=== PATIENT | male | born 1960 | race Caucasian/White ===

== ENCOUNTER 2018-03-20 08:04 | Day surgery (SDC) | payer BC ==
[2018-03-15 13:28] VITALS: BMI 25.0
[~2018-03-20 08:04] MED LIST: LACTATED RINGERS 1,000 ML IV SCH
[2018-03-20 08:28] VITALS: TEMP 98
[2018-03-20] MEDS ORDERED: LACTATED RINGERS 1,000 ML IV ONE (08:29)
[2018-03-20] MEDS ORDERED: LIDOCAINE 1% 20 ML VIAL (10MG/ML) FOR IV START INTRADERMA ONE (08:29)
--- NOTE | 2018-03-20 10:13 | P.PCN ---
Date of Procedure: 03/20/18 Procedure(s) Performed: Procedure: Total colonoscopy. Preoperative diagnosis: Screening for neoplasia, patient has history of cancerous polyps. Postoperative diagnosis: Exam within normal limits. Preparation: HalfLytely prep. Sedation: Was provided by anesthesia. Brief clinical history: The patient is a 58-year-old male who was discovered to have cancerous polyp in 2009 for which he had segmental resection. His colonoscopy was repeated in 2012 and he returns today for screening because of that history. He has no abdominal complaints, bleeding or anemia. Procedure: With the patient on his left lateral decubitus position and after informed consent and adequate sedation, the perianal area was inspected and it did not show any fissures or fistulas. There were no masses felt on digital rectal examination. The Olympus CFQ 160L video colonoscope was then inserted in the rectum in the usual fashion and advanced to the cecum. The mucosa appeared healthy. No polyps or tumors were seen. No obvious diverticular disease or other pathology. I retroflexed the endoscope in the rectum before the endoscope was withdrawn. The patient tolerated the procedure well. Plan: The patient was reassured. He will follow up with you as planned and I recommended repeat exam in 5 years.
[2018-03-20 10:36] VITALS: BP 159/79; PULSE 57; RESP 16
== END 2018-03-20 10:55 | disposition home or self-care (01) ==
LOC: ORWHC2ENDO 08:04
DX: Z12.11 Encounter for screening for malignant neoplasm of colon (principal); Z85.038 Personal history of other malignant neoplasm of large intestine; K21.9 Gastro-esophageal reflux disease without esophagitis; Z79.82 Long term (current) use of aspirin; Z79.899 Other long term (current) drug therapy; Z88.8 Allergy status to other drugs, medicaments and biological substances

== ENCOUNTER → 2018-09-13 | Outpatient (CLI) | payer BC ==
--- NOTE | 2018-09-13 15:00 | CT ---
EXAMINATION TYPE: CT soft tissue neck wo/w con DATE OF EXAM: 09/13/2018 COMPARISON: None HISTORY: Neck fullness dysphasia CONTRAST: CT scan of the neck is performed with IV Contrast, patient injected with 100 mL of Isovue 300. Unenhanced followed by Contrast enhanced CT of the neck was performed from the skull base through the lung apices. AIRWAY: The supraglottic, glottic, and subglottic portions of the airway appear patent and free of mass. SALIVARY GLANDS: The submandibular and parotid glands are free of mass or inflammatory process. THYROID GLAND: No nodules or masses seen. LYMPH NODES: No adenopathy seen greater than 1cm. LUNG APICES: No nodule or mass is seen. OTHER: Vascular structures are patent. Degenerative changes change of the cervical spine. No absces s seen. IMPRESSION: No distinct abnormality to account for the patient's symptoms.
== END | disposition home or self-care (01) ==
LOC: RADCTMAIN 12:44
PROVIDERS: ATTEND Family Medicine
DX: R13.10 Dysphagia, unspecified (principal); R22.1 Localized swelling, mass and lump, neck
CPT/HCPCS: 70492; Q9967

== ENCOUNTER 2023-05-09 08:06 | Day surgery (SDC) | payer BC ==
[2023-05-04 15:24] VITALS: BMI 25.0
[2023-05-09] MEDS ORDERED: LIDOCAINE 1% (10MG/ML) FOR IV START INTRADERMA PRN (08:27)
[2023-05-09] MEDS ORDERED: LACTATED RINGERS 1,000 ML IV SCH (08:27)
[2023-05-09] MEDS ORDERED: ONDANSETRON 4 MG/2 ML VIAL ONE (08:30)
[2023-05-09 08:45] VITALS: TEMP 97.3
[2023-05-09] MEDS ORDERED: ONDANSETRON 4 MG/2 ML VIAL IVP ONE (08:45)
[2023-05-09] MEDS ORDERED: PROPOFOL 10 MG/ML 20 ML VIAL IV ONE (08:53)
--- NOTE | 2023-05-09 09:07 | P.PCN ---
Date of Procedure: 05/09/23 Procedure(s) Performed: BRIEF HISTORY: Patient is a 63-year-old pleasant white male scheduled for an elective colonoscopy as a part of screening for colon cancer. He had prior history of colon polyps and underwent segmental colon resection 10 years ago for large colon polyp. PROCEDURE PERFORMED: Colonoscopy. PREOPERATIVE DIAGNOSIS: Screening for colon cancer. IV sedation per Anesthesia. PROCEDURE: After informed consent was obtained, the patient, was brought into the endoscopy unit. IV sedation was administered by Anesthesia under continuous monitoring. Digital rectal examination was normal. Initially the Olympus CF-160 flexible video colonoscope was then inserted in the rectum, gradually advanced into the cecum without any difficulty. Careful examination was performed as the scope was gradually being withdrawn. Ileocecal valve and the appendiceal orifice were visualized and appeared normal. Prep was excellent. Mucosa of the cecum, ascending colon, transverse colon, descending colon, appeared normal. There was evidence of previous surgery noted in the sigmoid colon anastomosis and normal. Mucosa of the sigmoid colon, and rectum appeared normal. Retroflexion was performed in the rectum and no lesions were seen. The patient tolerated the procedure well. IMPRESSION: Normal-appearing colon from rectum to cecum with no emesis of colorectal neoplasia . RECOMMENDATIONS: Findings of this examination were discussed with the patient his family. He was advised to follow have a repeat screening colonoscopy every 5 years because of prior history of colon polyps.
[2023-05-09 09:30] VITALS: BP 137/77; PULSE 69; RESP 20
== END 2023-05-09 09:44 | disposition home or self-care (01) ==
LOC: ORWHC2ENDO 08:06
PROVIDERS: ATTEND Internal Medicine Gastroenterology
DX: Z12.11 Encounter for screening for malignant neoplasm of colon (principal); K21.9 Gastro-esophageal reflux disease without esophagitis; Z86.010 Personal history of colon polyps; Z79.82 Long term (current) use of aspirin; Z79.899 Other long term (current) drug therapy; Z88.5 Allergy status to narcotic agent
CPT/HCPCS: 45378; J2405; J2704

== ENCOUNTER → 2024-08-14 | Outpatient (CLI) | payer BC ==
--- NOTE | 2024-08-14 13:07 | XR ---
EXAMINATION TYPE: XR abdomen 1V DATE OF EXAM: 08/14/2024 12:33 PM COMPARISON: None CLINICAL INDICATION: Male, 64 years old with history of K59.00 CONSTIPATION; H TECHNIQUE: One radiographic view of the abdomen was obtained. FINDINGS: There is a moderate stool burden, otherwise, the bowel gas pattern is nonspecific without d ilated loops of small or large bowel. . Fecal material and gas are demonstrated throughout the colon and rectum. There is no evidence for organomegaly or pneumoperitoneum. The osseous structures are in tact. No abnormal calcifications are present. Upper quadrant course likely clips. IMPRESSION: 1. Moderate amount of stool, Nonspecific bowel gas pattern without radiographic evidence for acute p rocess. [facility], , 08/14/2024 1:05 PM
== END | disposition home or self-care (01) ==
LOC: RADXRMAIN 12:16
PROVIDERS: ATTEND Family Medicine
DX: K59.00 Constipation, unspecified (principal); R19.5 Other fecal abnormalities
CPT/HCPCS: 74018